=== PATIENT | female | born 1985 | race Caucasian/White ===

== ENCOUNTER → 2019-04-21 | Outpatient (CLI) | payer MEDICAID ==
--- NOTE | 2019-04-21 13:12 | Diagnostic Imaging Report ---
INDICATION: Influenza. PA and lateral chest. FINDINGS: Heart size and pulmonary vascularity are normal. Lungs are clear. There are no effusions or pneumothoraces. IMPRESSION: Negative chest. Dictated by: Dictated on workstation # [id number]
== END ==
LOC: RAD FS 12:14
PROVIDERS: ATTEND Nurse Practitioner Family
DX: J11.1 Influenza due to unidentified influenza virus with other respiratory manifestations (principal)
CPT/HCPCS: 71046

== ENCOUNTER 2019-04-23 14:43 | Emergency (ER) | payer MEDICAID ==
[~2019-04-23] VITALS: Ht 170 cm; Wt 120.0 kg
[2019-04-23] MEDS ORDERED: KETOROLAC 30 MG/ML VIAL IVP ONE (15:30)
[2019-04-23] MEDS ORDERED: NS IV 1000 ML 1,000 ML IV SCH (15:30)
--- NOTE | 2019-04-23 15:38 | ED General ---
General Chief Complaint: General Problems/Pain Stated Complaint: COUGH,POSS FLU,DIZZY Nursing Triage Note: Patient reports being diagnosed with influenza on 04/20/2019 and told she had pneumonia also. Patient had chest xray done on 04/21/2019, according to the patient her PCP told her she did not want to treat the pneumonia or the influenza until she got the results of her chest xray back. Patient reports being SOA Nursing Sepsis Screen: No Definite Risk History of Present Illness Date Seen by Provider: Apr 23, 2019 Time Seen by Provider: 15:33 Initial Comments 33-year-old female started in 8 days ago with congestion achy feeling as though it's difficult to breathe Reports having been seen in the clinic 3 days ago and was told at that time that her influenza A test was positive but that she was too far along to be prescribed Tamiflu she was under the impression the provider thought she had pneumonia had an outpatient chest x-ray done yesterday the result of which she doesn't know yet That chest x-ray was officially read negative She just reports her symptoms continue she is very fatigued and dizzy, so decided to go to the ER Allergies and Home Medications Allergies Coded Allergies: Acetaminophen (Unverified Allergy, Unknown, 07/15/09) Hydrocodone (Unverified Allergy, Unknown, 07/15/09) Patient Home Medication List Home Medication List Reviewed: Yes Review of Systems Review of Systems Constitutional: No fever EENTM: throat pain Respiratory: cough, short of breath Cardiovascular: no symptoms reported; No palpitations, No syncope Gastrointestinal: No abdominal pain, No diarrhea, No vomiting Genitourinary: no symptoms reported LMP: Apr 09, 2019 Skin: No rash Past [id number]-[id number] Hx Patient Social History Alcohol Use: Denies Use Recreational Drug Use: No Smoking Status: Current Everyday Smoker Recent Foreign Travel: No Contact w/Someone Who Travel: No Recent Infectious Disease Expo: No Past Medical History Surgeries: No Respiratory: No Cardiac: No Neurological: No Reproductive Disorders: No Sexually Transmitted Disease: No Gastrointestinal: No Musculoskeletal: No Endocrine: No Psychosocial: Yes Blood Disorders: No Physical Exam Vital Signs Vital Signs - First Documented 04/23/19 14:50 Temp 36.5 Pulse 93 Resp 18 B/P (MAP) 122/71 (88) Pulse Ox 98 Capillary Refill : Less Than 3 Seconds Height, Weight, BMI Height: '" Weight: lbs. oz. kg; 41.00 BMI Method: General Appearance: No Apparent Distress, Other (pale ill but not toxic appearing vitals normal afebrile O2 sat good on RA @RR18) Eyes: Bilateral Eye PERRL, Bilateral Eye EOMI HEENT: TMs Normal, Other (oropharynx somewhat inflammed) Neck: Non Tender, Supple Respiratory: Lungs Clear, No Accessory Muscle Use Cardiovascular: Regular Rate, Rhythm Gastrointestinal: Normal Bowel Sounds, Non Tender, Soft Extremity: No Calf Tenderness, No Pedal Edema Progress/Results/Core Measures Suspected Sepsis Recent Fever Within 48 Hours: No Infection Criteria Present: None New/Unexplained Altered Menta: No Sepsis Screen: No Definite Risk SIRS Temperature: Pulse: 93 Respiratory Rate: 18 Laboratory Tests 04/23/19 15:40: White Blood Count 3.4L Blood Pressure 122 /71 Mean: 88 Laboratory Tests 04/23/19 15:40: Creatinine 0.71, Platelet Count 197, Total Bilirubin 0.3 Results/Orders Lab Results Laboratory Tests Test 04/23/19 15:40 Range/Units White Blood Count 3.4 L 4.3-11.0 10^3/uL Red Blood Count 4.76 4.35-5.85 10^6/uL Hemoglobin 14.4 11.5-16.0 G/DL Hematocrit 43 35-52 % Mean Corpuscular Volume 90 80-99 FL Mean Corpuscular Hemoglobin 30 25-34 PG Mean Corpuscular Hemoglobin Concent 34 32-36 G/DL Red Cell Distribution Width 13.2 10.0-14.5 % Platelet Count 197 130-400 10^3/uL Mean Platelet Volume 10.1 7.4-10.4 FL Neutrophils (%) (Auto) 40 L 42-75 % Lymphocytes (%) (Auto) 45 H 12-44 % Monocytes (%) (Auto) 10 0-12 % Eosinophils (%) (Auto) 4 0-10 % Basophils (%) (Auto) 1 0-10 % Neutrophils # (Auto) 1.4 L 1.8-7.8 X 10^3 Lymphocytes # (Auto) 1.5 1.0-4.0 X 10^3 Monocytes # (Auto) 0.3 0.0-1.0 X 10^3 Eosinophils # (Auto) 0.1 0.0-0.3 10^3/uL Basophils # (Auto) 0.0 0.0-0.1 10^3/uL Sodium Level 139 135-145 MMOL/L Potassium Level 3.8 3.6-5.0 MMOL/L Chloride Level 105 98-107 MMOL/L Carbon Dioxide Level 22 21-32 MMOL/L Anion Gap 12 5-14 MMOL/L Blood Urea Nitrogen 7 7-18 MG/DL Creatinine 0.71 0.60-1.30 MG/DL Estimat Glomerular Filtration Rate > 60 BUN/Creatinine Ratio 10 Glucose Level 91 70-105 MG/DL Calcium Level 8.9 8.5-10.1 MG/DL Corrected Calcium 9.1 8.5-10.1 MG/DL Total Bilirubin 0.3 0.1-1.0 MG/DL Aspartate Amino Transf (AST/SGOT) 22 5-34 U/L Alanine Aminotransferase (ALT/SGPT) 19 0-55 U/L Alkaline Phosphatase 72 40-136 U/L Total Protein 7.2 6.4-8.2 GM/DL Albumin 3.8 3.2-4.5 GM/DL My Orders Orders - OSMAN HERMOSILLO MD Iv Heplock-Insert (Order) (04/23/19 15:29) Ns Iv 1000 Ml (Sodium Chloride 0.9%) (04/23/19 15:30) Cbc With Automated Diff (04/23/19 15:29) Comprehensive Metabolic Panel (04/23/19 15:29) Ketorolac Injection (Toradol Injection) (04/23/19 15:30) Medications Given in ED Current Medications Medications Dose Ordered Sig/Aren Route Start Time Stop Time Status Last Admin Dose Admin Ketorolac Tromethamine 30 mg ONCE ONCE IVP 04/23/19 15:30 04/23/19 15:32 DC 04/23/19 15:41 30 MG Vital Signs/I&O 04/23/19 14:50 Temp 36.5 Pulse 93 Resp 18 B/P (MAP) 122/71 (88) Pulse Ox 98 Capillary Refill : Less Than 3 Seconds Blood Pressure Mean: 88 Progress Note : Progress Note CXR from 2 d ago no pneumonia Hemoglobin is 14.4 white blood count is 3400 with a lymphocytic shift CMP is essentially normal the patient is receiving 1 L of IV fluid Patient has no indication for hospitalization Departure Impression Primary Impression: Influenza Disposition: HOME, SELF-CARE Condition: Stable Departure-Patient Inst. Decision time for Depature: 16:10 Referrals: [facility] (PCP) Primary Care Physician VERONICA HELTON APRN (Family) Primary Care Physician Patient Instructions: Flu, Adult (DC) Add. Discharge Instructions: Continue alternating Tylenol and ibuprofen be sure to sip on fluids to avoid dehydration OSMAN HERMOSILLO MD Apr 23, 2019 15:38
[2019-04-23 15:50] LABS: HEMATOCRIT 43 % (35-52); HEMOGLOBIN 14.4 G/DL (11.5-16.0); LYMPHOCYTES % (AUTO) 45 % (12-44); MEAN CORPUSCULAR HEMOGLOBIN 30 PG (25-34); MEAN CORPUSCULAR HGB CONC 34 G/DL (32-36); MEAN CORPUSCULAR VOLUME 90 FL (80-99); MEAN PLATELET VOLUME 10.1 FL (7.4-10.4); MONOCYTES % (AUTO) 10 % (0-12); NEUTROPHILS % (AUTO) 40 % (42-75); PLATELET COUNT 197 10^3/uL (130-400); RED CELL DISTRIBUTION WIDTH 13.2 % (10.0-14.5); WHITE BLOOD COUNT 3.4 10^3/uL (4.3-11.0)
[2019-04-23 15:51] LABS: BASOPHILS % (AUTO) 1 % (0-10); EOSINOPHILS # (AUTO) 0.1 10^3/uL (0.0-0.3); EOSINOPHILS % (AUTO) 4 % (0-10); LYMPHOCYTES # (AUTO) 1.5 X 10^3 (1.0-4.0); MONOCYTES # (AUTO) 0.3 X 10^3 (0.0-1.0); NEUTROPHILS # (AUTO) 1.4 X 10^3 (1.8-7.8)
[2019-04-23 16:03] LABS: SODIUM 139 MMOL/L (135-145)
[2019-04-23 16:04] LABS: ALANINE AMINOTRANSFERASE 19 U/L (0-55); ALBUMIN 3.8 GM/DL (3.2-4.5); ALKALINE PHOSPHATASE 72 U/L (40-136); BILIRUBIN,TOTAL 0.3 MG/DL (0.1-1.0); BUN/CREATININE RATIO 10; CALCIUM 8.9 MG/DL (8.5-10.1); CARBON DIOXIDE 22 MMOL/L (21-32); CHLORIDE 105 MMOL/L (98-107); CREATININE SERUM 0.71 MG/DL (0.60-1.30); GFR ESTIMATED > 60; GLUCOSE 91 MG/DL (70-105); POTASSIUM 3.8 MMOL/L (3.6-5.0); TOTAL PROTEIN 7.2 GM/DL (6.4-8.2)
[2019-04-23 16:17] VITALS: BP 129/78
== END 2019-04-23 16:17 | disposition home or self-care (01) ==
LOC: EDUNIT# 14:43 → ER FS 14:44
DX: J11.1 Influenza due to unidentified influenza virus with other respiratory manifestations (principal); F17.200 Nicotine dependence, unspecified, uncomplicated; Z88.5 Allergy status to narcotic agent; Z88.6 Allergy status to analgesic agent
CPT/HCPCS: 36415; 80053; 85025